=== PATIENT | female | born 1945 | race Two or more races ===

== ENCOUNTER 2023-08-08 13:13 | Emergency (ER) | payer OTHER ==
[~2023-08-08] VITALS: Ht 160 cm; Wt 76.2 kg
[2023-08-08] MEDS ORDERED: NIFEDIPINE ER60 MG (13:22)
[2023-08-08] MEDS ORDERED: IBANDRONATE SO150 MG PO (13:22)
[2023-08-08] MEDS ORDERED: HYDRALAZINE HCL25 MG PO (13:22)
[2023-08-08] MEDS ORDERED: KAPSPARGO SPRI100 MG PO (13:22)
[2023-08-08] MEDS ORDERED: VALSARTAN320 MG PO (13:22)
[2023-08-08] MEDS ORDERED: DICLOFENAC SODI50 MG PO (16:25)
== END 2023-08-08 16:36 ==
LOC: ER 13:13
DX: S19.80XA Other specified injuries of unspecified part of neck, initial encounter (principal); V49.9XXA Car occupant (driver) (passenger) injured in unspecified traffic accident, initial encounter; Y93.89 Activity, other specified; Y92.413 State road as the place of occurrence of the external cause; I10 Essential (primary) hypertension; M06.8A Other specified rheumatoid arthritis, other specified site